=== PATIENT | female | born 1970 | race Caucasian/White ===

== ENCOUNTER 2018-11-07 14:50 | Emergency (ER) | payer MEDICAID | END 2018-11-07 20:31 | disposition home or self-care (01) | LOC: FTE 14:50 | DX: S92.901A Unspecified fracture of right foot, initial encounter for closed fracture (principal); W10.8XXA Fall (on) (from) other stairs and steps, initial encounter; Y92.9 Unspecified place or not applicable | CPT/HCPCS: 29515; 73610-RT; 73630; 99283-25 ==